=== PATIENT | male | born 1970 | race Two or more races ===

== ENCOUNTER 2021-04-24 09:06 | Emergency (ER) | payer MEDICAID, OTHER ==
[~2021-04-24] VITALS: Ht 175.3 cm; Wt 86.2 kg
[2021-04-24 09:09] VITALS: BP 131/60
== END 2021-04-24 10:03 | disposition left against medical advice (07) ==
LOC: ER 09:06
DX: M79.642 Pain in left hand (principal); M79.89 Other specified soft tissue disorders; Z53.21 Procedure and treatment not carried out due to patient leaving prior to being seen by health care provider

== ENCOUNTER 2021-06-29 04:46 | Emergency (ER) | payer MEDICAID ==
[~2021-06-29] VITALS: Ht 175.3 cm; Wt 90.7 kg
[2021-06-29 04:57] VITALS: BP 121/98
== END 2021-06-29 09:47 | disposition left against medical advice (07) ==
LOC: ER 04:46
DX: R10.9 Unspecified abdominal pain (principal); Z53.21 Procedure and treatment not carried out due to patient leaving prior to being seen by health care provider